=== PATIENT | female | born 1995 | race African-American/Black ===

== ENCOUNTER 2016-11-28 10:58 | Outpatient (CLI) | payer OTHER ==
[~2016-11-28] VITALS: Ht 180.3 cm; Wt 122.7 kg
[~2016-11-28 10:58] MED LIST: DIFLUCAN150 MG PO; ENOXAPARIN40 MG/0.4 SC; MACROBID100 MG PO; PRENATAL VITAM1 EA11 PO; XARELTO20 MG PO; ZOFRAN ODT4 MG PO
[2016-11-28 13:13] LABS: ADD MIUA? YES; BILIRUBIN NEGATIVE; BLOOD NEGATIVE; COLOR YELLOW ((YELLOW)); GLUCOSE (STRIP) NEGATIVE; KETONES NEGATIVE; LEUKOCYTES LARGE; NITRITE NEGATIVE; PROTEIN (STRIP) NEGATIVE; SPECIFIC GRAVITY 1.017 (1.000-1.030); UROBILINOGEN 0.2 MG/DL (0.2-1.0)
[2016-11-28 13:45] LABS: BACTERIA 3+ /HPF; CASTS NONE SEEN /LPF; CRYSTALS NONE SEEN; EPITHELIAL CELLS 2+ /HPF; MUCUS 1+ /LPF; RED BLOOD CELLS RARE /HPF (0-5)
[2016-11-28] MEDS ORDERED: NITROFURANTOIN100 M3 PO (16:40)
[2016-11-28 22:45] LABS: CANDIDA DNA PROBE NEGATIVE; GARDNERELLA DNA PROBE NEGATIVE; INTERNAL CONTROL VALID? YES
[2016-11-29 12:18] LABS: CHLAMYDIA TRACHOMATIS NEGATIVE; NEISSERIA GONORRHOEAE NEGATIVE
== END 2016-11-28 17:30 | disposition home or self-care (01) ==
LOC: LDRP-OP → 2WEST 10:59 → LDRP-OP 03-04 12:03
PROVIDERS: Advanced Practice Midwife; Obstetrics & Gynecology
DX: O26.893 Other specified pregnancy related conditions, third trimester (principal); Z3A.30 30 weeks gestation of pregnancy
CPT/HCPCS: 59025; 81003; 82731; 87086; 87480; 87491; 87510; 87591; 87660; G0378

== ENCOUNTER 2017-01-31 08:05 | Inpatient (IN) | payer OTHER ==
[2017-01-31] VITALS (26 sets, daily range): BP systolic 99–134; BP diastolic 52–81
[~2017-01-31] VITALS: Ht 180.3 cm; Wt 127.0 kg
[~2017-01-31 08:05] MED LIST changes: +NITROFURANTOIN100 M3 PO
[2017-01-31] MEDS ORDERED: HEPARIN SO5000 UNITS SC (08:38)
[2017-01-31 09:52] LABS: EOSINOPHIL (%) 0.6 % (0-5); EOSINOPHIL COUNT 0.1 K/uL (0-0.3); HEMATOCRIT 27.7 % (36.0-46.0); IMMATURE GRANULOCYTE (%) 0.4 % (0.0-0.7); INSTRUMENT ABS NEUTROPHIL CT 6.4 K/uL; LYMPHOCYTE COUNT 1.9 K/uL (1.0-2.8); MCH 25.8 PG (29.0-34.0); MCHC 31.4 G/DL (30.0-36.0); MCV 82.2 FL (83-99); MEAN PLAT.VOLUME 11.5 uM^3 (9.5-12.4); MONOCYTE (%) 6.7 % (3-12); MONOCYTE COUNT 0.6 K/uL (0-0.8); NEUTROPHIL (%) 71.1 % (45-76); NEUTROPHIL COUNT 6.4 K/uL (1.8-6.4); PLATELET COUNT 242 K/uL (156-360); RBC DIS.WIDTH-CV 17.4 % (11.8-14.6); RBC DIS.WIDTH-SD 51.8 % (39-53); RED BLOOD COUNT 3.37 M/uL (3.80-5.20)
[2017-02-01 08:47] LABS: EOSINOPHIL (%) 0.5 % (0-5); EOSINOPHIL COUNT 0.1 K/uL (0-0.3); HEMATOCRIT 27.6 % (36.0-46.0); IMMATURE GRANULOCYTE (%) 0.5 % (0.0-0.7); IMMATURE GRANULOCYTE COUNT 0.1 K/uL; INSTRUMENT ABS NEUTROPHIL CT 8.1 K/uL; LYMPHOCYTE COUNT 2.4 K/uL (1.0-2.8); MCH 25.2 PG (29.0-34.0); MCHC 30.1 G/DL (30.0-36.0); MCV 83.6 FL (83-99); MEAN PLAT.VOLUME 12.3 uM^3 (9.5-12.4); MONOCYTE (%) 6.4 % (3-12); MONOCYTE COUNT 0.7 K/uL (0-0.8); NEUTROPHIL (%) 71.4 % (45-76); NEUTROPHIL COUNT 8.1 K/uL (1.8-6.4); PLATELET COUNT 235 K/uL (156-360); RBC DIS.WIDTH-CV 17.4 % (11.8-14.6); RBC DIS.WIDTH-SD 52.8 % (39-53); WHITE BLOOD COUNT 11.4 K/uL (4.1-10.2)
[2017-02-02 07:42] VITALS: BP 112/67
[2017-02-02] MEDS ORDERED: FERROUS SULFAT325 MG PO (11:19)
[2017-02-02] MEDS ORDERED: LOVENOX150 MG/1 M SC (11:21)
[2017-02-02] MEDS ORDERED: Tylenol Extra Streng PO (11:21)
[2017-02-02 14:28] VITALS: BP 113/59
== END 2017-02-02 17:10 | disposition home or self-care (01) | DRG 774 ==
LOC: LDRP-OP → 2WEST 08:06 → LDRP-OP 09:51 → 2WEST 18:29 → LDRP-OP 03-04 21:29
PROVIDERS: Obstetrics & Gynecology
PROC: 10E0XZZ Delivery of Products of Conception, External Approach (ICD-10-PCS; principal; 2017-01-31)
PROC: 00HU33Z Insertion of Infusion Device into Spinal Canal, Percutaneous Approach (ICD-10-PCS; principal; 2017-01-31)
PROC: 3E0R3CZ (ICD-10-PCS; principal; 2017-01-31)
PROC: 0U7C7ZZ Dilation of Cervix, Via Natural or Artificial Opening (ICD-10-PCS; principal; 2017-01-31)
PROC: 3E0P7GC Introduction of Other Therapeutic Substance into Female Reproductive, Via Natural or Artificial Opening (ICD-10-PCS; principal; 2017-01-31)
DX: O88.22 Thromboembolism in childbirth (principal); O99.12 Other diseases of the blood and blood-forming organs and certain disorders involving the immune mechanism complicating childbirth; D68.51 Activated protein C resistance; D68.318 Other hemorrhagic disorder due to intrinsic circulating anticoagulants, antibodies, or inhibitors; O99.214 Obesity complicating childbirth; E66.9 Obesity, unspecified; O99.824 Streptococcus B carrier state complicating childbirth; Z3A.39 39 weeks gestation of pregnancy; Z37.0 Single live birth
CPT/HCPCS: 85025; 86850; 86900; 86901; C1755; J0690; J1650; J3010; J7050; J7120

== ENCOUNTER 2017-04-28 20:17 | Emergency (ER) | payer OTHER ==
[~2017-04-28] VITALS: Ht 180.3 cm; Wt 121.2 kg
[~2017-04-28 20:17] MED LIST changes: +FERROUS SULFAT325 MG PO; +HEPARIN SO5000 UNITS SC; +LOVENOX150 MG/1 M SC; +Tylenol Extra Streng PO
[2017-04-28] MEDS ORDERED: ELIQUIS2.5 MG PO (21:05)
[2017-04-28 23:10] VITALS: BP 108/58
== END 2017-04-28 23:16 | disposition home or self-care (01) ==
LOC: EME 20:17
DX: M79.605 Pain in left leg (principal); Z86.718 Personal history of other venous thrombosis and embolism; Z86.711 Personal history of pulmonary embolism; D68.2 Hereditary deficiency of other clotting factors
CPT/HCPCS: 93971; 99281; 99284

== ENCOUNTER 2017-06-01 12:39 | Emergency (ER) | payer OTHER ==
[~2017-06-01] VITALS: Ht 180.3 cm; Wt 120.9 kg
[~2017-06-01 12:39] MED LIST changes: +ELIQUIS2.5 MG PO
[2017-06-01 13:39] LABS: ADD MIUA? YES; BILIRUBIN NEGATIVE; BLOOD MODERATE; COLOR STRAW ((YELLOW)); GLUCOSE (STRIP) NEGATIVE; KETONES NEGATIVE; LEUKOCYTES NEGATIVE; NITRITE NEGATIVE; PROTEIN (STRIP) NEGATIVE; SPECIFIC GRAVITY 1.008 (1.000-1.030); UROBILINOGEN 0.2 MG/DL (0.2-1.0)
[2017-06-01 13:41] LABS: BACTERIA NONE SEEN /HPF; EPITHELIAL CELLS RARE /HPF; MUCUS TRACE /LPF; RED BLOOD CELLS 0-5 /HPF (0-5); UCUL ADDED? NO; WHITE BLOOD CELLS 0-5 /HPF (0-5)
[2017-06-01 13:43] LABS: HEMATOCRIT 34.8 % (36.0-46.0); MCH 23.5 PG (29.0-34.0); MCHC 30.5 G/DL (30.0-36.0); MEAN PLAT.VOLUME 10.9 uM^3 (9.5-12.4); PLATELET COUNT 351 K/uL (156-360); RBC DIS.WIDTH-CV 17.5 % (11.8-14.6); RED BLOOD COUNT 4.52 M/uL (3.80-5.20)
[2017-06-01 13:53] LABS: CHLORIDE 105 mEq/L (99-109); POTASSIUM 3.8 mEq/L (3.7-5.4); SODIUM 139 mEq/L (136-147)
[2017-06-01 13:55] LABS: GLUCOSE 90 mg/dL (70-99)
[2017-06-01 13:57] LABS: ANION GAP 8 MEQ/L (2-14)
[2017-06-01 13:59] LABS: GFR ESTIMATE (CALCULATED) > 59 mL/min/
[2017-06-01 14:00] LABS: UREA NITROGEN (BUN) 8 mg/dL (9-23)
[2017-06-01 14:16] LABS: INTERNAL CONTROL VALID? YES; MONOSPOT (MONONUCLEOSIS SEROL) NEGATIVE
[2017-06-01] MEDS ORDERED: TORADOL10 MG PO (14:39)
[2017-06-01 14:51] VITALS: BP 127/77
[2017-06-05] MEDS ORDERED: ELIQUIS2.5 MG PO (17:50)
[2017-06-05] MEDS ORDERED: KETOROLAC TROME10 MG PO (17:51)
[2017-06-05] MEDS ORDERED: FIORICET 50-301 EACH PO (20:39)
== END 2017-06-01 15:05 | disposition home or self-care (01) ==
LOC: EME 12:39
PROVIDERS: Emergency Medicine
DX: B34.9 Viral infection, unspecified (principal); D68.2 Hereditary deficiency of other clotting factors; Z86.711 Personal history of pulmonary embolism; Z79.01 Long term (current) use of anticoagulants
CPT/HCPCS: 71020; 80048; 81003; 85027; 86308; 93005; 99281; 99285; J1885; J7030

== ENCOUNTER 2017-10-26 09:42 | Day surgery (SDC) | payer OTHER ==
[~2017-10-26] VITALS: Ht 180.3 cm; Wt 121.5 kg
[~2017-10-26 09:42] MED LIST changes: +FIORICET 50-301 EACH PO; +KETOROLAC TROME10 MG PO; +LOVENOX40 MG/0.4 SC; +PERCOCET 5/31 TABLET PO; +TORADOL10 MG PO
[2017-10-26 10:20] LABS: BASOPHIL (%) 0.4 % (0-1); EOSINOPHIL (%) 1.5 % (0-5); EOSINOPHIL COUNT 0.1 K/uL (0-0.3); HEMATOCRIT 33.3 % (36.0-46.0); HEMOGLOBIN 10.5 G/DL (11.9-15.5); IMMATURE GRANULOCYTE (%) 0.3 % (0.0-0.7); LYMPHOCYTE (%) 26.1 % (15-42); LYMPHOCYTE COUNT 1.9 K/uL (1.0-2.8); MCH 24.4 PG (29.0-34.0); MCHC 31.5 G/DL (30.0-36.0); MCV 77.3 FL (83-99); MONOCYTE (%) 5.7 % (3-12); MONOCYTE COUNT 0.4 K/uL (0-0.8); NEUTROPHIL COUNT 4.8 K/uL (1.8-6.4); PLATELET COUNT 294 K/uL (156-360); RBC DIS.WIDTH-SD 50.8 % (39-53); RED BLOOD COUNT 4.31 M/uL (3.80-5.20); WHITE BLOOD COUNT 7.3 K/uL (4.1-10.2)
[2017-10-26 10:24] VITALS: BP 117/64
[2017-10-26 13:15] VITALS: BP 114/68
[2017-10-26 15:04] VITALS: BP 125/70
== END 2017-10-26 15:00 | disposition home or self-care (01) ==
LOC: SDC 09:42
PROVIDERS: Obstetrics & Gynecology
PROC: 10D17ZZ Extraction of Products of Conception, Retained, Via Natural or Artificial Opening (ICD-10-PCS; principal; 2017-10-26)
DX: O02.1 Missed abortion (principal); O08.1 Delayed or excessive hemorrhage following ectopic and molar pregnancy; D64.9 Anemia, unspecified; Z86.711 Personal history of pulmonary embolism; Z79.01 Long term (current) use of anticoagulants; Z88.0 Allergy status to penicillin
CPT/HCPCS: 85025; 86850; 86900; 86901; 88305; J0330; J0690; J1100; J1650; J2405; J2590; J3010

== ENCOUNTER 2018-01-11 03:57 | Emergency (ER) | payer OTHER ==
[~2018-01-11] VITALS: Ht 180.3 cm; Wt 130.5 kg
[2018-01-11 04:39] LABS: HEMATOCRIT 32.2 % (36.0-46.0); HEMOGLOBIN 10.1 G/DL (11.9-15.5); MCH 24.5 PG (29.0-34.0); MCHC 31.4 G/DL (30.0-36.0); PLATELET COUNT 315 K/uL (156-360); RBC DIS.WIDTH-CV 16.9 % (11.8-14.6); RBC DIS.WIDTH-SD 47.5 % (39-53); RED BLOOD COUNT 4.13 M/uL (3.80-5.20); WHITE BLOOD COUNT 9.7 K/uL (4.1-10.2)
[2018-01-11 04:58] LABS: PTT 27.7 SEC (25-37)
[2018-01-11 04:59] LABS: TROP-I INTERPRETATION NEGATIVE; TROPONIN-I < 0.01 ng/mL (0.0-0.30)
[2018-01-11 05:08] LABS: CHLORIDE 107 mEq/L (99-109); SODIUM 138 mEq/L (136-147)
[2018-01-11 05:10] LABS: GLUCOSE 92 mg/dL (70-99)
[2018-01-11 05:14] LABS: CREATININE 0.7 mg/dL (0.6-1.3); GFR ESTIMATE (CALCULATED) > 59 mL/min/; QUANTITATIVE HCG < 4.0 MIU/ML
[2018-01-11 05:15] LABS: UREA NITROGEN (BUN) 14 mg/dL (9-23)
[2018-01-11] MEDS ORDERED: TORADOL10 MG PO (05:26)
[2018-01-11 05:47] VITALS: BP 116/77
== END 2018-01-11 05:48 | disposition home or self-care (01) ==
LOC: EME 03:57
DX: M94.0 Chondrocostal junction syndrome [Tietze] (principal); Z86.711 Personal history of pulmonary embolism; Z88.0 Allergy status to penicillin; Z88.1 Allergy status to other antibiotic agents; Z88.5 Allergy status to narcotic agent
CPT/HCPCS: 71046; 80048; 84484; 84702; 85027; 85379; 85610; 85730; 93005; 99281; 99284

== ENCOUNTER 2018-01-13 00:28 | Emergency (ER) | payer OTHER ==
[~2018-01-13] VITALS: Ht 180.3 cm; Wt 130.0 kg
[2018-01-13 01:36] LABS: HEMATOCRIT 34.5 % (36.0-46.0); HEMOGLOBIN 10.7 G/DL (11.9-15.5); MCH 24.3 PG (29.0-34.0); MCV 78.2 FL (83-99); PLATELET COUNT 348 K/uL (156-360); RBC DIS.WIDTH-CV 16.9 % (11.8-14.6); RBC DIS.WIDTH-SD 47.8 % (39-53); RED BLOOD COUNT 4.41 M/uL (3.80-5.20); WHITE BLOOD COUNT 9.3 K/uL (4.1-10.2)
[2018-01-13 01:46] LABS: PTT 26.9 SEC (25-37)
[2018-01-13 01:50] LABS: CHLORIDE 104 mEq/L (99-109); POTASSIUM 4.3 mEq/L (3.7-5.4); SODIUM 139 mEq/L (136-147)
[2018-01-13 01:51] LABS: GLUCOSE 86 mg/dL (70-99)
[2018-01-13 01:55] LABS: CREATININE 0.8 mg/dL (0.6-1.3); GFR ESTIMATE (CALCULATED) > 59 mL/min/
[2018-01-13 01:56] LABS: UREA NITROGEN (BUN) 13 mg/dL (9-23)
[2018-01-13 01:57] LABS: TROP-I INTERPRETATION NEGATIVE; TROPONIN-I < 0.01 ng/mL (0.0-0.30)
[2018-01-13 02:06] LABS: QUANTITATIVE HCG < 4.0 MIU/ML
[2018-01-13 03:55] LABS: ALBUMIN 3.8 g/dL (3.2-4.8)
[2018-01-13 04:00] LABS: TOTAL BILIRUBIN 0.3 mg/dL (0.0-1.0)
[2018-01-13 04:01] LABS: ALKALINE PHOSPHATASE 89 IU/L (3-129)
[2018-01-13 04:03] LABS: AST (GOT) 12 IU/L (2-34); DIRECT BILIRUBIN 0.1 mg/dL (0.0-0.3)
[2018-01-13 04:04] LABS: ALT (GPT) 11 IU/L (3-49); LIPASE 22 U/L (1.0-51.0)
[2018-01-13] MEDS ORDERED: NORCO 5/3251 TABLET PO (05:55)
[2018-01-13] MEDS ORDERED: PEPCID20 MG PO (05:55)
[2018-01-13 06:32] VITALS: BP 102/74
== END 2018-01-13 06:34 | disposition home or self-care (01) ==
LOC: EME 00:28
DX: R07.89 Other chest pain (principal); Z83.2 Family history of diseases of the blood and blood-forming organs and certain disorders involving the immune mechanism; Z86.711 Personal history of pulmonary embolism; K76.0 Fatty (change of) liver, not elsewhere classified; G43.909 Migraine, unspecified, not intractable, without status migrainosus; Z79.01 Long term (current) use of anticoagulants; Z79.891 Long term (current) use of opiate analgesic; Z88.5 Allergy status to narcotic agent; Z88.1 Allergy status to other antibiotic agents; Z88.0 Allergy status to penicillin
CPT/HCPCS: 71046; 71275; 76705; 80048; 80076; 83690; 84484; 84702; 85027; 85379; 85610; 85730; 93005; 99281; 99285; J2405; J3010; J7030